=== PATIENT | female | born 1985 | race Caucasian/White ===

== ENCOUNTER 2023-11-10 01:38 | Emergency (ER) | payer OTHER ==
[2023-11-10 01:49] VITALS: BMI 31.6
[2023-11-10] MEDS ORDERED: METOCLOPRAMIDE HCL INJECTION 10 MG/2 ML VIAL ONE (02:08)
[2023-11-10] MEDS: SODIUM CHLORIDE 0.9% 500 ML INFUS.BAG IV ONE (02:23)
[2023-11-10] MEDS: METOCLOPRAMIDE HCL INJECTION 10 MG/2 ML VIAL IVPB ONE (02:23)
[2023-11-10] MEDS: ACETAMINOPHEN 1000 MG/100 ML BAG IVPB ONE (02:29)
[2023-11-10] MEDS ORDERED: ACETAMINOPHEN INJECTION 100 ML IVPB ONE (02:29)
[2023-11-10 03:03] LABS: POTASSIUM 3.6 mmol/L (3.5-5.1)
[2023-11-10 03:04] LABS: BASO % 0.7 % (0-2.0); EOS % 0.5 % (0-4.5); HEMATOCRIT 37.9 % (32.4-45.2); HEMOGLOBIN 13.1 GM/dL (10.7-15.3); LYMPH % 17.3 % (8-40); MCH 29.5 pg (25.7-33.7); MCHC 34.7 g/dl (32.0-36.0); MEAN CELL VOLUME 85.2 fl (80-96); MEAN PLT VOLUME 7.6 fl (7.5-11.1); MONO % 3.9 % (3.8-10.2); NEUT % 77.6 % (42.8-82.8); PLATELET COUNT 280 10^3/uL (134-434); RBC 4.45 M/mm3 (3.60-5.2); WHITE BLOOD COUNT 11.2 K/mm3 (4.0-10.0)
[2023-11-10 03:06] LABS: CALCIUM 8.7 mg/dL (8.5-10.1)
[2023-11-10 03:07] LABS: ALBUMIN 3.8 g/dl (3.4-5.0); BLOOD UREA NITROGEN 11.2 mg/dL (7-18)
[2023-11-10 03:10] LABS: CREATININE 0.7 mg/dL (0.55-1.3)
[2023-11-10 03:11] LABS: TOT PROT 7.2 g/dl (6.4-8.2)
[2023-11-10 03:12] LABS: BILIRUBIN,TOTAL 0.7 mg/dL (0.2-1)
[2023-11-10 03:42] VITALS: BP 123/77; PULSE 75; RESP 19; TEMP 98.3
== END 2023-11-10 04:10 | disposition home or self-care (01) ==
LOC: JER 01:38
PROC: 3E030NZ Introduction of Analgesics, Hypnotics, Sedatives into Peripheral Vein, Open Approach (ICD-10-PCS; principal; 2023-11-10)
PROC: 3E030GC Introduction of Other Therapeutic Substance into Peripheral Vein, Open Approach (ICD-10-PCS; 2023-11-10)
DX: R51.9 Headache, unspecified (principal)
CPT/HCPCS: 36415; 80053; 84703; 85025; 99284-25; J0131

== ENCOUNTER 2024-04-07 23:16 | Emergency (ER) | payer OTHER ==
[2024-04-07 23:35] VITALS: BP 140/81; PULSE 90; RESP 18; TEMP 99; BMI 33.3
[2024-04-07] MEDS ORDERED: BACITRACIN ZINC 15 GM TUBE TOPICAL OINTMENT ONE (23:55)
== END 2024-04-08 00:18 | disposition home or self-care (01) ==
LOC: JER 23:16
DX: S71.151A Open bite, right thigh, initial encounter (principal); W54.0XXA Bitten by dog, initial encounter
CPT/HCPCS: 99282-25